=== PATIENT | female | born 1960 | race Caucasian/White ===

== ENCOUNTER → 2018-09-25 | Outpatient (CLI) | payer MEDICAID | LOC: BRMIMAGING 08:02 | PROVIDERS: ATTEND Registered Nurse | DX: N85.8 Other specified noninflammatory disorders of uterus (principal); D25.1 Intramural leiomyoma of uterus; F33.1 Major depressive disorder, recurrent, moderate | CPT/HCPCS: 76856-PO ==

== ENCOUNTER → 2018-11-01 | Outpatient (CLI) | payer MEDICAID | LOC: BRMIMAGING 16:05 | PROVIDERS: ATTEND Registered Nurse | DX: Z01.811 Encounter for preprocedural respiratory examination (principal); M41.84 Other forms of scoliosis, thoracic region | CPT/HCPCS: 71046-PO ==